=== PATIENT | female | born 1995 | race Caucasian/White ===

== ENCOUNTER 2019-03-09 21:54 | Emergency (ER) | payer BC ==
--- NOTE | 2019-03-09 22:01 | UC ---
Throat Pain/Nasal Alessandro HPI - HPI Summary HPI Summary: 23-year-old female comes in with a chief complaint of sore throat. She's also noticed exudates on her tonsils. Hurts worse on the right side. Hurts and she swallows. She had strep throat more than a month ago and also sinusitis in between both times treated with amoxicillin. Minimal rhinorrhea no cough no chest congestion. - History of Current Complaint Stated Complaint: SORE THROAT Time Seen by Provider: 03/09/19 22:00 - Allergies/Home Medications Allergies/Adverse Reactions: Allergies Allergy/AdvReac Type Severity Reaction Status Date / Time seasonal Allergy Congestion Uncoded 03/09/19 22:04 PMH/Surg Hx/FS Hx/Imm Hx Previously Healthy: Yes - Surgical History Surgical History: None - Family History Known Family History: Positive: Non-Contributory - Social History Alcohol Use: None Substance Use Type: None Smoking Status (MU): Never Smoked Tobacco Review of Systems All Other Systems Reviewed And Are Negative: Yes Constitutional: Positive: Other - see hpi Skin: Positive: Negative Eyes: Positive: Negative ENT: Positive: Sore Throat, Nasal Discharge Respiratory: Positive: Negative Cardiovascular: Positive: Negative Gastrointestinal: Positive: Negative Motor: Positive: Negative Neurovascular: Positive: Negative Musculoskeletal: Positive: Negative Neurological: Positive: Negative Psychological: Positive: Negative Is Patient Immunocompromised?: No Physical Exam Triage Information Reviewed: Yes Appearance: No Pain Distress, Well-Nourished, Ill-Appearing - mild Vital Signs Reviewed: Yes Eye Exam: Normal Eyes: Positive: Conjunctiva Clear ENT: Positive: Pharyngeal erythema, Tonsillar swelling - Both tonsils are swollen right tonsil is 2+ left tonsil is 1+. There are exudates on the right tonsil. Uvula is midline. Do not appreciate a peritonsillar abscess at this time., Tonsillar exudate. Negative: Muffled voice, Hoarse voice Neck: Positive: Supple Respiratory: Positive: Lungs clear, Normal breath sounds, No respiratory distress Cardiovascular: Positive: RRR Musculoskeletal: Positive: Strength Intact, ROM Intact Neurological: Positive: Alert Psychological: Positive: Age Appropriate Behavior Skin Exam: Normal Throat Pain/Nasal Course/Dx - Course Course Of Treatment: DISCUSSED VIRAL VERSES BACTERIAL INFECTIONS AND THE ROLE OF ANTIBIOTICS. THE PATIENT PREFERS TO BE ON ANTIBIOTICS AT THIS TIME. Patient reports that her mother is arranging an ENT follow-up when she goes home on break for the recurrent tonsillitis. - Differential Dx/Diagnosis Provider Diagnosis: Tonsillitis Discharge ED - Sign-Out/Discharge Documenting (check all that apply): Patient Departure All imaging exams completed and their final reports reviewed: No Studies - Discharge Plan Condition: Stable Disposition: HOME Prescriptions: Cephalexin CAP* [Keflex CAP*] 500 mg PO TID #29 cap Patient Education Materials: Tonsillitis (ED) Referrals: [facility] [Outside] Additional Instructions: FOLLOW UP WITH YOUR DOCTOR IF NOT COMPLETELY IMPROVED. GET REEVALUATED SOONER IF NOT IMPROVING OR YOUR CONDITION WORSENS OR ANY QUESTIONS OR CONCERNS. - Billing Disposition and Condition Condition: STABLE Disposition: Home
[2019-03-09 22:04] VITALS: BP 134/84
[2019-03-09] MEDS ORDERED: Cephalexin CAP* 500 MG PO ONE (22:12)
== END 2019-03-09 22:19 | disposition home or self-care (01) ==
LOC: UCCORT 21:54
DX: J03.90 Acute tonsillitis, unspecified (principal); R09.81 Nasal congestion; Z91.09 Other allergy status, other than to drugs and biological substances
CPT/HCPCS: 87651; 99212; A9270-GY; G0463

== ENCOUNTER 2019-03-12 12:45 | Emergency (ER) | payer BC ==
[2019-03-12 14:48] VITALS: BP 119/76
--- NOTE | 2019-03-12 15:28 | UC ---
Throat Pain/Nasal Alessandro HPI - HPI Summary HPI Summary: 23-year-old female presents with complaints of persistent sore throat. She was seen at this facility on 04/09/2014 for same complaint. She had a negative rapid strep test at that time however elected to begin antibiotics and she was prescribed a course of cephalexin which she states she has been taking. States she feels that her tonsils have become more enlarged since that time. Denies fever, chills, ear pain, nasal congestion, runny nose, dysphagia, trismus, difficulty breathing, abdominal pain, nausea, or vomiting. - History of Current Complaint Chief Complaint: UCRespiratory Stated Complaint: SWOLLEN GLANDS, SORE THROAT Time Seen by Provider: 03/12/19 15:14 Hx Obtained From: Patient Hx Last Menstrual Period: 02/27/19 Pain Intensity: 0 - Allergies/Home Medications Allergies/Adverse Reactions: Allergies Allergy/AdvReac Type Severity Reaction Status Date / Time seasonal Allergy Congestion Uncoded 03/12/19 14:40 Home Medications: Home Medications Ibuprofen TAB* [Motrin TAB* 400 MG] 400 mg PO ONCE PRN 03/12/19 [History Confirmed 03/12/19] PMH/Surg Hx/FS Hx/Imm Hx Previously Healthy: Yes - Denies significant PMH - Surgical History Surgical History: None - Family History Known Family History: Positive: Non-Contributory - Social History Occupation: Student Lives: Dormitory/Roommates Alcohol Use: None Substance Use Type: None Smoking Status (MU): Never Smoked Tobacco Review of Systems All Other Systems Reviewed And Are Negative: Yes Constitutional: Negative: Fever, Chills Skin: Negative: Rash Eyes: Negative: Drainage, Eye Redness ENT: Positive: Sore Throat. Negative: Ear Ache, Nasal Discharge, Sinus Congestion, Sinus Pain/Tenderness Respiratory: Negative: Shortness Of Breath, Cough Cardiovascular: Negative: Chest Pain Gastrointestinal: Negative: Abdominal Pain, Vomiting, Diarrhea, Nausea Genitourinary: Positive: Negative Musculoskeletal: Positive: Negative Neurological: Positive: Negative Is Patient Immunocompromised?: No Physical Exam - Summary Physical Exam Summary: GENERAL APPEARANCE: Well developed, well nourished, alert and cooperative, and appears to be in no acute distress. EYES: Conjunctiva clear. No drainage. EARS: External auditory canals and tympanic membranes clear, hearing grossly intact. NOSE: No nasal discharge. THROAT: Pharyngeal erythema. Tonsilar edema with the left tonsil slightly larger than the right tonsil. Mild exudate. Uvula midline. NECK: Neck supple, non-tender without lymphadenopathy. CARDIAC: Normal S1 and S2. No S3, S4 or murmurs. Rhythm is regular. There is no peripheral edema, cyanosis or pallor. Extremities are warm and well perfused. Capillary refill is less than 2 seconds. Peripheral pulses intact. LUNGS: Clear to auscultation without rales, rhonchi, wheezing or diminished breath sounds. ABDOMEN: Positive bowel sounds. Soft, nondistended, nontender. No guarding or rebound. No masses or hepatosplenomegally. MUSKULOSKELETAL: ROM intact to all extremities. No joint erythema or tenderness. Normal muscular development. Normal gait. SKIN: Skin normal color, texture and turgor with no lesions or eruptions. Triage Information Reviewed: Yes Vital Signs: Initial Vital Signs Temp 98 F 03/12/19 14:42 Pulse 75 03/12/19 14:42 Resp 18 03/12/19 14:42 BP 119/76 03/12/19 14:42 Pulse Ox 100 03/12/19 14:42 Vital Signs Reviewed: Yes Throat Pain/Nasal Course/Dx - Course Course Of Treatment: 23-year-old female presents with complaints of persistent sore throat. She was seen at this facility on 04/09/2014 for same complaint. She had a negative rapid strep test at that time however elected to begin antibiotics and she was prescribed a course of cephalexin which she states she has been taking. States she feels that her tonsils have become more enlarged since that time. Denies fever, chills, ear pain, nasal congestion, runny nose, dysphagia, trismus, difficulty breathing, abdominal pain, nausea, or vomiting. Afebrile. Vital signs stable. Patient had pharyngeal erythema, tonsillar edema with the left tonsil being slightly larger than the right, midline uvula, no cervical lymphadenopathy, otherwise unremarkable exam. I discussed with the patient that with her rapid strep test having been negative and was most likely that her symptoms were from a viral infection which is why they have not been responding to the antibiotics. We did discuss the fact that with her left tonsil being greater than the right that I cannot fully rule out the possibility of an early peritonsillar abscess although I have a very low suspicion. She was given dexamethasone 10 mg times one dose in the clinic to help with the inflammation and pain. I have encouraged her to continue with her antibiotics since I cannot exclude a peritonsillar abscess. She is to return here or follow-up with [facility] in 3 days if her symptoms are not improving. Anticipatory guidance and warning symptoms requiring immediate evaluation in the emergency room were reviewed with the patient. Verbalizes understanding and agrees with plan of care. - Differential Dx/Diagnosis Differential Diagnosis/HQI/PQRI: Mononucleosis, Peritonsillar Abscess, Pharyngitis, Tonsillitis, URI Provider Diagnosis: Pharyngitis Discharge ED - Sign-Out/Discharge Documenting (check all that apply): Patient Departure All imaging exams completed and their final reports reviewed: No Studies - Discharge Plan Condition: Stable Disposition: HOME Patient Education Materials: Pharyngitis (ED) Referrals: No Primary Care Phys,NOPCP [Primary Care Provider] - Additional Instructions: With your rapid strep test being negative in the clinic the other day, it is most likely that your symptoms are from a viral infection. Viral infections do not respond to antibiotics which is why you may not be seeing improvement in your symptoms. Your left tonsil is a little larger that the right which could suggest an early peritonsilar abscess however I have a low suspicion for this. You were given dexamethasone 10 mg to help decrease the swelling and inflammation. This is a long-acting steroid will be in your system for the next 3 days. As I cannot fully rule out the possibility of an early peritonsillar abscess recommending that you continue taking your antibiotic as prescribed. Drink plenty of fluids to avoid dehydration especially if you are running any fever. Use salt water gargles several times a day. Take over the counter acetaminophen (Tylenol) or ibuprofen (Advil, Motrin) according to directions as needed for pain or fever. You may also use Chloraseptic spray or Cepacol lonzenges according to directions which contain a numbing medication and can provide some temporary relief from your sore throat. Return here or follow up at the [facility] in 3 days if symptoms did not improve. Seek immediate medical attention in the emergency room if you have fever greater than 100.5 F despite taking acetaminophen or ibuprofen, are unable to swallow or develop drooling, are unable to open your mouth fully, are unable to eat or drink, have pain that is not relieved with over the counter pain medication, or have any difficulty breathing. - Billing Disposition and Condition Condition: STABLE Disposition: Home
[2019-03-12] MEDS ORDERED: Dexamethasone TAB* 4 MG PO ONE (16:03)
[2019-03-13] MEDS ORDERED: Dexamethasone TAB* 4 MG PO ONE (15:52)
== END 2019-03-12 16:13 | disposition home or self-care (01) ==
LOC: UCCORT 12:45
DX: J02.9 Acute pharyngitis, unspecified (principal); Z91.09 Other allergy status, other than to drugs and biological substances
CPT/HCPCS: 99211; G0463; J8540

== ENCOUNTER 2019-03-27 18:43 | Emergency (ER) | payer BC ==
[2019-03-27 19:12] VITALS: BP 114/71
[2019-03-27] MEDS ORDERED: Nitrofurantoin Macrocrystals* 50 MG CAP PO ONE (19:37)
--- NOTE | 2019-03-27 19:37 | UC ---
Complaint Female HPI - HPI Summary HPI Summary: C/O dysuria, frequency, urgency since yesterday. Started AZO yesterday. H/O UTI No fevers/ chills/ back pain. - History Of Current Complaint Chief Complaint: UCGU Stated Complaint: URINARY Time Seen by Provider: 03/27/19 19:27 Hx Obtained From: Patient Hx Last Menstrual Period: 03/24/19 ?: No Onset/Duration: Sudden Onset, Lasting Hours, Lasting Days - 1, Still Present Severity Initially: Moderate Severity Currently: Moderate Pain Intensity: 8 Character: Burning, Cramping Aggravating Factor(s): Urination Alleviating Factor(s): Meds - AZO Associated Signs And Symptoms: Positive: Negative - Allergies/Home Medications Allergies/Adverse Reactions: Allergies Allergy/AdvReac Type Severity Reaction Status Date / Time seasonal Allergy Congestion Uncoded 03/27/19 19:12 Home Medications: Home Medications Methenamine/Sodium Salicylate [Azo Urinary Tract Defense Tab] 1 each PO DAILY [History Confirmed 03/27/19] PMH/Surg Hx/FS Hx/Imm Hx Previously Healthy: Yes - Surgical History Surgical History: None - Family History Known Family History: Positive: Cardiac Disease, Hypertension, Diabetes, Non- Contributory - Social History Occupation: Student Lives: Dormitory/Roommates Alcohol Use: None Substance Use Type: None Smoking Status (MU): Never Smoked Tobacco Review of Systems All Other Systems Reviewed And Are Negative: Yes Genitourinary: Positive: Dysuria, Frequency, Urgency Is Patient Immunocompromised?: No Physical Exam Triage Information Reviewed: Yes Appearance: Well-Appearing, No Pain Distress, Well-Nourished Vital Signs: Initial Vital Signs Temp 98.3 F 03/27/19 19:07 Pulse 74 03/27/19 19:07 Resp 16 03/27/19 19:07 BP 114/71 03/27/19 19:07 Pulse Ox 98 03/27/19 19:07 Vital Signs Reviewed: Yes ENT: Positive: Pharynx normal, TMs normal Neck exam: Normal Respiratory Exam: Normal Cardiovascular Exam: Normal Abdomen Description: Positive: Nontender. Negative: CVA Tenderness (R), CVA Tenderness (L) Musculoskeletal Exam: Normal Neurological Exam: Normal Psychological Exam: Normal Skin Exam: Normal Complaint Female Dx - Differential Dx/Diagnosis Differential Diagnosis/HQI/PQRI: Appendicitis, Ovarian Cyst, Pelvic Inflammatory Disease, Urinary Tract Infection Provider Diagnosis: Acute cystitis Discharge ED - Sign-Out/Discharge Documenting (check all that apply): Patient Departure All imaging exams completed and their final reports reviewed: No Studies - Discharge Plan Condition: Stable Disposition: HOME Prescriptions: Nitrofurantoin Monohyd/M-Cryst [Macrobid 100 mg Capsule] 100 mg PO BID #10 cap Patient Education Materials: Urinary Tract Infection in Women (ED), Nitrofurantoin Combination (By mouth) Referrals: No Primary Care Phys,NOPCP [Primary Care Provider] - - Billing Disposition and Condition Condition: STABLE Disposition: Home
== END 2019-03-27 19:48 | disposition home or self-care (01) ==
LOC: UCCORT 18:43
DX: N30.00 Acute cystitis without hematuria (principal); Z91.09 Other allergy status, other than to drugs and biological substances
CPT/HCPCS: 87086; 99212; A9270-GY; G0463

== ENCOUNTER 2019-06-08 12:59 | Emergency (ER) | payer BC ==
--- NOTE | 2019-06-08 13:21 | UC ---
Throat Pain/Nasal Alessandro HPI - HPI Summary HPI Summary: 24 year old female with h/o tonsillitis/ pharyngitis, last seen by ENT over , presents with L sided ear, throat, neck pain x 24 hours. + mild fever here, did not take any pain medications. no difficulty with breathing, does not feel obstructed in throat, just pain with swallowing. Able to tolerate fluids well. no prior occurrences of abscess. - History of Current Complaint Chief Complaint: UCGeneralIllness Stated Complaint: LT SIDE FACIAL PAIN,CHILLS, ST Hx Obtained From: Patient Hx Last Menstrual Period: 03/24/19 ?: No Onset/Duration: Sudden Onset Pain Intensity: 8 Pain Scale Used: 0-10 Numeric Associated Signs & Symptoms: Positive: Dysphagia, Fever. Negative: FB Sensation , Drooling, Wheezing, Hoarseness, Sinus Discomfort, Nasal Discharge, Vomiting - Allergies/Home Medications Allergies/Adverse Reactions: Allergies Allergy/AdvReac Type Severity Reaction Status Date / Time seasonal Allergy Congestion Uncoded 06/08/19 13:08 PMH/Surg Hx/FS Hx/Imm Hx Previously Healthy: Yes - Surgical History Surgical History: None - Family History Known Family History: Positive: Cardiac Disease, Hypertension, Diabetes, Non- Contributory - Social History Occupation: Student Alcohol Use: None Substance Use Type: None Smoking Status (MU): Never Smoked Tobacco Review of Systems All Other Systems Reviewed And Are Negative: Yes Constitutional: Positive: Fever, Chills, Fatigue ENT: Positive: Dental Pain, Sore Throat - left, Ear Ache - left. Negative: Nasal Discharge, Sinus Congestion, Sinus Pain/Tenderness Respiratory: Negative: Shortness Of Breath, Cough Cardiovascular: Negative: Chest Pain Neurological: Positive: Negative Psychological: Positive: Negative Is Patient Immunocompromised?: No Physical Exam Triage Information Reviewed: Yes Appearance: No Pain Distress, Well-Nourished, Ill-Appearing - mild Vital Signs: Initial Vital Signs Temp 100.7 F 06/08/19 13:06 Pulse 114 06/08/19 13:06 Resp 21 06/08/19 13:06 BP 146/80 06/08/19 13:06 Pulse Ox 97 06/08/19 13:06 Vital Signs Reviewed: Yes Eyes: Positive: Conjunctiva Clear, Other: - emoi ENT: Positive: Hearing grossly normal, Pharyngeal erythema - left sided, TMs normal - right, TM red - left, Tonsillar swelling - grade II, Tonsillar exudate - moderate amount, Uvula midline. Negative: Sinus tenderness Dental Exam: Normal Neck: Positive: No Lymphadenopathy, Tenderness @ - submandibular L, nothing on RIght. Respiratory: Positive: Chest non-tender, Lungs clear, Normal breath sounds, No respiratory distress, No accessory muscle use. Negative: Respiratory distress, Crackles, Rhonchi, Stridor, Wheezing Cardiovascular: Positive: RRR, No Murmur Neurological Exam: Normal Psychological Exam: Normal Throat Pain/Nasal Course/Dx - Course Course Of Treatment: - Motrin as needed for pain/ fever, muscle aches - Clindamycin every 6 hours x 2 weeks - Follow up with ENT within 24-48 hours - GO IMMEDIATELY to ER if difficulty swallowing, fever > 102, increased pain. - Differential Dx/Diagnosis Differential Diagnosis/HQI/PQRI: Epiglottitis, Laryngitis, Peritonsillar Abscess , URI Provider Diagnosis: Acute bacterial tonsillitis Discharge ED - Sign-Out/Discharge Documenting (check all that apply): Patient Departure All imaging exams completed and their final reports reviewed: No Studies - Discharge Plan Condition: Fair Disposition: HOME Prescriptions: clindamycin HCL [Clindamycin HCl] 300 mg PO Q6H #56 capsule Patient Education Materials: Peritonsillar Abscess (ED) Forms: *School Release Referrals: Kulwant Saucedo MD [Medical Doctor] - (Appointment tomorrow at 8:45AM, please call to change times or reschedule if needed ) No Primary Care Phys,NOPCP [Primary Care Provider] - Additional Instructions: - Motrin as needed for pain/ fever, muscle aches - Clindamycin every 6 hours x 2 weeks - Follow up with ENT within 24-48 hours - GO IMMEDIATELY to ER if difficulty swallowing, fever > 102, increased pain. - - Billing Disposition and Condition Condition: FAIR Disposition: Home
[2019-06-08] MEDS ORDERED: Ibuprofen PED LIQ 100 MG/5 ML UDC PO ONE (13:32)
[2019-06-08] MEDS ORDERED: Clindamycin CAP* 150 MG PO ONE (13:37)
[2019-06-08 14:00] VITALS: BP 119/59
== END 2019-06-08 13:59 | disposition home or self-care (01) ==
LOC: UCCORT 12:59
DX: J03.80 Acute tonsillitis due to other specified organisms (principal); B96.89 Other specified bacterial agents as the cause of diseases classified elsewhere; K08.89 Other specified disorders of teeth and supporting structures; H92.02 Otalgia, left ear; Z91.09 Other allergy status, other than to drugs and biological substances
CPT/HCPCS: 87651; 99212; A9270-GY; G0463